=== PATIENT | male | born 1970 | race Caucasian/White ===

== ENCOUNTER → 2019-02-16 | Day surgery (SDC) | payer BC ==
[2019-02-14 14:31] VITALS: BMI 25.0
[~2019-02-16] MED LIST: LACTATED RINGERS 1,000 ML IV SCH; LIDOCAINE 1% 20 ML VIAL (10MG/ML) FOR IV START INTRADERMA PRN; PROPOFOL 10 MG/ML 20 ML VIAL IV ONE
[2019-02-16 08:22] VITALS: TEMP 97.7
--- NOTE | 2019-02-16 09:28 | P.PCN ---
Date of Procedure: 02/16/19 Procedure(s) Performed: BRIEF HISTORY: Patient is a 49-year-old pleasant male scheduled for an elective colonoscopy as a part of screening for colorectal neoplasia. PROCEDURE PERFORMED: Colonoscopy. PREOPERATIVE DIAGNOSIS: Treated for colon cancer. IV sedation per Anesthesia. PROCEDURE: After informed consent was obtained, the patient, was brought into the endoscopy unit. IV sedation was administered by Anesthesia under continuous monitoring. Digital rectal examination was normal. Initially the Olympus CF-160 flexible video colonoscope was then inserted in the rectum, gradually advanced into the cecum without any difficulty. Careful examination was performed as the scope was gradually being withdrawn. Ileocecal valve and the appendiceal orifice were visualized and appeared normal. Prep was excellent. Mucosa of the cecum, ascending colon, transverse colon, descending colon, sigmoid colon, and rectum appeared normal. Scattered sigmoid diverticulosis seen. Retroflexion was performed in the rectum and no lesions were seen. The patient tolerated the procedure well. IMPRESSION: Normal-appearing colon from rectum to cecum with no evidence of colorectal neoplasia . RECOMMENDATIONS: Findings of this examination were discussed with the patient as well as his family. He was advised to have a repeat screening colonoscopy in 10 years..
[2019-02-16 09:52] VITALS: BP 171/88; PULSE 66; RESP 18
== END ==
LOC: ORWHC2ENDO 08:04
PROVIDERS: ATTEND Internal Medicine Gastroenterology
DX: Z12.11 Encounter for screening for malignant neoplasm of colon (principal); K57.30 Diverticulosis of large intestine without perforation or abscess without bleeding; Z79.82 Long term (current) use of aspirin
CPT/HCPCS: G0121; J2704; 45378

== ENCOUNTER → 2020-08-12 | Outpatient (CLI) | payer BC ==
--- NOTE | 2020-08-12 09:41 | XR ---
EXAMINATION TYPE: XR abdomen 2V DATE OF EXAM: 08/12/2020 CLINICAL DATA: 50-year-old male R10.30, left lower sided pain, groin pain, PHH COMPARISON: None FINDINGS: Lung bases are clear. No evidence for free intraperitoneal air. No dilated small bowel or air-fluid levels. Scattered air and stool seen throughout the colon extendi ng distally into the rectum. Moderate stool within the rectum. Mild stool scattered elsewhere in the abdomen. No suspicious calcifications identified. There appear to be Cam bumps along the superior femoral head neck junctions on both sides. IMPRESSION: 1. No evidence of bowel obstruction or free intraperitoneal air. 2. Moderate stool in the rectum and mild elsewhere within the colon. 3. CAM bumps along the superior femoral head neck junctions at both hips. Correlate for any chronic h ip pain and with physical exam testing to exclude femoral acetabular impingement syndrome.
--- NOTE | 2020-08-12 10:00 | US ---
EXAMINATION TYPE: US scrotum with doppler. DATE OF EXAM: 08/12/2020 COMPARISON: NONE CLINICAL HISTORY: 50-year-old male Groin pain R10.30. Left groin pain/ache with certain sideway posit ional changes TECHNIQUE: Grayscale and color Doppler Duplex imaging performed of the scrotum. FINDINGS: EXAM MEASUREMENTS: TESTICLES: Right Testicle: 3.8 x 2.6 x 2.1 cm Left Testicle: 3.3 x 2.1 x 1.7 cm EPIDIDYMIS HEAD: Right Epididymis: 1.2 x 1.1 x 1.2 cm Left Epididymis: 0.9 x 1.0 x 0.9 cm PW and Color Doppler was performed to assess for testicular vascularity; good bilateral color flow an d waveforms are seen. There is no evidence of testicular torsion. Right epididymis: Oval, homogeneous hypoechoic area noted in head and may be a debris-filled cyst ira suring 1.2 x 0.8 x 0.5;small calcification is noted in tail of epididymis. Right testicle: multiple, small calcifications are seen at mediastinum. Left epididymis: small calcification is noted in head; small head cyst seen = 0.3 x 0.2 x 0.2cm. Left testicle: scrotal brandy is imaged mid sac = 0.3 x 0.3 x 0.2cm. Presence of hydroceles: small fluid area noted in right scrotal sac = 1.4 x 1.4 x 1.0cm Presence of varicoceles: prominent veins are noted inferior left. Left Groin US assessment at patient's c/o pain and aching: no hernia is noted with superior to infer ior assessment at level of vessels to inferomedial area of groin pain. IMPRESSION: 1. No sonographic evidence for testicular torsion or epididymoorchitis. 2. A hypoechoic lesion, possible debris-filled cyst of the right epididymal head measuring 1.2 x 0.8 cm. Consider 6-12 month follow-up ultrasound to reassess. 3. 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 Consider urology referral to determine clinical significance and need for any subsequent fo llow-up. 4. Left-sided scrotal varicoceles. Small right hydrocele. 5. Additional scanning along the patient's left groin. No discrete inguinal hernia identified by ultr asound.
== END | disposition home or self-care (01) ==
LOC: RADUSWWP 08:07
PROVIDERS: ATTEND Pediatrics
DX: I86.1 Scrotal varices (principal); N43.3 Hydrocele, unspecified; R10.30 Lower abdominal pain, unspecified
CPT/HCPCS: 74019; 76870; 93975